=== PATIENT | male | born 1970 | race African-American/Black ===

== ENCOUNTER 2018-12-20 09:54 | Inpatient (IN) | payer MEDICARE, OTHER ==
[2018-12-20] MEDS: SODIUM CHLORIDE 0.9% 1L BAG IV* (10:16)
[2018-12-20 10:19] LABS: ADD MAN DIFF? NO
[2018-12-20 10:20] LABS: ABNORMAL IP MESSAGE 1; BASOPHIL # 0.1 10^3/ul (0.0-0.1); BASOPHILS % 0.4 % (0.0-2.0); HEMATOCRIT 45.5 % (42.0-52.0); HEMOGLOBIN 14.2 g/dl (14.0-18.0); LYMPHOCYTES # 0.5 10^3/ul (0.8-2.9); LYMPHOCYTES % 2.9 % (15.0-51.0); MEAN CORPUSCULAR HEMOGLOBIN 32.6 pg (29.0-33.0); MEAN CORPUSCULAR HGB CONC 31.2 g/dl (32.0-37.0); MEAN CORPUSCULAR VOLUME 104.4 fl (82.0-101.0); MEAN PLATELET VOLUME 10.5 fl (7.4-10.4); MONOCYTE # 0.6 10^3/ul (0.3-0.9); MONOCYTES % 3.1 % (0.0-11.0); NEUTROPHIL # 17.7 10^3/ul (1.6-7.5); NEUTROPHILS % 93.1 % (39.0-77.0); PLATELET COUNT 187 10^3/UL (140-415); POSITIVE DIFF @See below; RED BLOOD COUNT 4.36 10^6/ul (4.70-6.10); RED CELL DISTRIBUTION WIDTH 12.9 % (11.5-14.5)
[2018-12-20 10:20] LABS: WHITE BLOOD COUNT 18.9 10^3/ul (4.8-10.8)
[2018-12-20] MEDS: ACETAMINOPHEN 650 MG SUPP PR (10:27)
[2018-12-20] MEDS: CEFEPIME 2GM/50 ML (PMX) 50 ML IVPB (10:28)
[2018-12-20] MEDS: LEVALBUTEROL (NEB) 1.25 MG/0.5 ML AMP HHN (10:30)
[2018-12-20 10:39] LABS: INR 1.31; PROTIME 16.4 Sec (11.9-14.9); PT RATIO 1.3
[2018-12-20 10:40] LABS: PARTIAL THROMBOPLASTIN TIME 37.1 Sec (23.0-35.0)
[2018-12-20] MEDS ORDERED: LORAZEPAM 2 MG INJ (10:45)
[2018-12-20 10:51] LABS: ALANINE AMINOTRANSFERASE 11 IU/L (13-69); ALBUMIN 5.1 g/dl (3.3-4.9); ALBUMIN/GLOBULIN RATIO 0.98; ALKALINE PHOSPHATASE 108 IU/L (42-121); ANION GAP 27 (5-13); ASPARTATE AMINO TRANSFERASE 27 IU/L (15-46); BILIRUBIN,INDIRECT 0.1 mg/dl (0-1.1); BILIRUBIN,TOTAL 0.1 mg/dl (0.2-1.3); BLOOD UREA NITROGEN 94 mg/dl (7-20); CALCIUM 12.3 mg/dl (8.4-10.2); CARBON DIOXIDE 28 mmol/L (21-31); CHLORIDE 98 mmol/L (97-110); CREATININE 8.72 mg/dl (0.61-1.24); Estimated GFR 8 mL/min (>60); GLUCOSE 253 mg/dl (70-220); POTASSIUM 4.9 mmol/L (3.5-5.1); SODIUM 153 mmol/L (135-144); TOTAL PROTEIN 10.3 g/dl (6.1-8.1)
[2018-12-20 10:56] LABS: AADO2 Arterial 101.4 mmHg (7.0-24.0); Allen Test ACCEPTAB; Arterial Base Excess -0.7 mmol/L (-3.0-3); Arterial Blood Gas Oxygen Sat 98.1 mmHG (95.0-98.0); Arterial COHb 0.1 % (0.0-3.0); Arterial Fraction of Oxyhgb 97.5 % (93.0-99.0); Arterial HCO3 24.8 mmol/L (22.0-26.0); Arterial MetHb 0.5 % (0.0-1.5); Arterial pCO2 43.9 mmhg (35-45); MODE VENT - AC; Site Left Radial
[2018-12-20] MEDS: VANCOMYCIN 1 GM (PMX) 250 ML IVPB (10:57)
[2018-12-20 11:00] LABS: TROPONIN-I < 0.012 ng/ml (0.000-0.120)
[2018-12-20 11:02] LABS: ADD UMIC YES; UR ASCORBIC ACID NEGATIVE (NEGATIVE); UR BACTERIA MODERATE /HPF (NONE SEEN); UR BILIRUBIN (Dip) NEGATIVE (NEGATIVE); UR BLOOD (Dip) 2+ mg/dL (NEGATIVE); UR CLARITY TURBID (CLEAR); UR COLOR YELLOW (YELLOW); UR GLUCOSE (Dip) NEGATIVE (NEGATIVE); UR KETONES (Dip) NEGATIVE (NEGATIVE); UR LEUKOCYTE ESTERASE (Dip) 3+ Leu/ul (NEGATIVE); UR MUCUS FEW /HPF (NONE SEEN); UR NITRITE (Dip) NEGATIVE (NEGATIVE); UR NONSQUAMOUS EPITHELIAL CELL 4 /HPF (NONE SEEN); UR RBC 179 /HPF (0-5); UR SPECIFIC GRAVITY (Dip) 1.025 (1.003-1.030); UR TOTAL PROTEIN (Dip) 3+ mg/dl (NEGATIVE); UR UROBILINOGEN (Dip) NEGATIVE (NEGATIVE); UR WBC > 182 /HPF (0-5)
[2018-12-20] MEDS: LEVETIRACETAM 1000 MG (PMX) 100 ML IVPB (11:15)
[2018-12-20] MEDS: DIAZEPAM 5 MG/ML SYG IV ×2 (11:15→11:48)
[2018-12-20] MEDS ORDERED: ONDANSETRON 4 MG INJ IV ×2 (11:30→12:00)
[2018-12-20] MEDS ORDERED: ACETAMINOPHEN 325 MG TAB PO ×2 (11:30→12:00)
[2018-12-20] MEDS: LORAZEPAM 2 MG INJ IV ×4 (11:49→22:58)
[2018-12-20] MEDS ORDERED: VANCOMYCIN IV PER PHARMACY XX (12:00)
[2018-12-20] MEDS ORDERED: NACL 0.9% 3 ML SYG IV (12:00)
[2018-12-20] MEDS ORDERED: morphine 2 MG INJ IV (12:00)
[2018-12-20] MEDS: FAMOTIDINE 20 MG INJ IV (12:58)
[2018-12-20] MEDS ORDERED: CEFEPIME 2GM/50 ML (PMX) 50 ML IVPB (14:00)
[2018-12-20] MEDS: ACETAMINOPHEN 325 MG TAB PO ×2 (14:43→20:29)
[2018-12-20 15:22] LABS: LACTIC ACID 1.6 mmol/L (0.5-2.0)
[2018-12-20] MEDS ORDERED: PENDING SANTYL ORDER FOR WOUND CARE XX (16:30)
[2018-12-20] MEDS: SOD CHLORIDE 0.9% 1,000 ML IV ×2 (17:53→20:45)
[2018-12-20] MEDS: HEPARIN 5,000 UNIT/1 ML VIAL SC (20:49)
[2018-12-20] MEDS ORDERED: FAMOTIDINE 20 MG INJ IV (21:00)
[2018-12-20] MEDS ORDERED: LEVETIRACETAM IV 750 MG in DEXTROSE 5% 100 ML IVPB ×2 (22:00→23:20)
[2018-12-20] MEDS: LEVETIRACETAM IV 750 MG in DEXTROSE 5% 100 ML IVPB (22:48)
[2018-12-20] MEDS: ACETAMINOPHEN 1000MG/100ML IV 100 ML IVPB (22:50)
[2018-12-21] MEDS: SOD CHLORIDE 0.9% 500 ML IV (00:39)
[2018-12-21] MEDS ORDERED: SODIUM CHLORIDE 0.9% 1L BAG IV (03:00)
[2018-12-21] MEDS ORDERED: HEPARIN 1000 UNITS/ML 10 ML INJ CATHETER (03:00)
[2018-12-21] MEDS: ACETAMINOPHEN 1000MG/100ML IV 100 ML IVPB ×3 (04:57→16:00)
[2018-12-21] MEDS: SOD CHLORIDE 0.9% 1,000 ML IV (05:15)
[2018-12-21] MEDS ORDERED: DOPamine-D5W 1.6 MG/ML 250 ML IV (05:30)
[2018-12-21 06:54] LABS: ADD MAN DIFF? NO
[2018-12-21 06:57] LABS: BASOPHIL # 0.1 10^3/ul (0.0-0.1); BASOPHILS % 0.5 % (0.0-2.0); HEMATOCRIT 43.6 % (42.0-52.0); HEMOGLOBIN 13.1 g/dl (14.0-18.0); LYMPHOCYTES # 1.4 10^3/ul (0.8-2.9); LYMPHOCYTES % 10.5 % (15.0-51.0); MEAN CORPUSCULAR HEMOGLOBIN 32.3 pg (29.0-33.0); MEAN CORPUSCULAR VOLUME 107.7 fl (82.0-101.0); MEAN PLATELET VOLUME 10.7 fl (7.4-10.4); MONOCYTES % 7.9 % (0.0-11.0); NEUTROPHIL # 10.4 10^3/ul (1.6-7.5); NEUTROPHILS % 80.6 % (39.0-77.0); PLATELET COUNT 161 10^3/UL (140-415); RED BLOOD COUNT 4.05 10^6/ul (4.70-6.10); RED CELL DISTRIBUTION WIDTH 12.8 % (11.5-14.5)
[2018-12-21 06:57] LABS: WHITE BLOOD COUNT 12.9 10^3/ul (4.8-10.8)
[2018-12-21 07:32] LABS: HEMOGLOBIN A1C 4.7 % (0-5.9)
[2018-12-21] MEDS: LORAZEPAM 2 MG INJ IV ×2 (07:37→11:36)
[2018-12-21 07:40] LABS: ALANINE AMINOTRANSFERASE 18 IU/L (13-69); ALBUMIN 4.6 g/dl (3.3-4.9); ALBUMIN/GLOBULIN RATIO 1.04; ALKALINE PHOSPHATASE 97 IU/L (42-121); ANION GAP 26 (5-13); ASPARTATE AMINO TRANSFERASE 23 IU/L (15-46); BLOOD UREA NITROGEN 112 mg/dl (7-20); CALCIUM 11.1 mg/dl (8.4-10.2); CARBON DIOXIDE 22 mmol/L (21-31); CHLORIDE 104 mmol/L (97-110); CREATININE 10.06 mg/dl (0.61-1.24); Estimated GFR 7 mL/min (>60); GLUCOSE 126 mg/dl (70-220); POTASSIUM 4.7 mmol/L (3.5-5.1); SODIUM 152 mmol/L (135-144)
[2018-12-21] MEDS ORDERED: PROPOFOL 100 ML (08:28)
[2018-12-21] MEDS ORDERED: CEFEPIME 2GM/50 ML IVPB (09:00)
[2018-12-21] MEDS ORDERED: LEVETIRACETAM IV 750 MG in DEXTROSE 5% 100 ML IVPB (09:00)
[2018-12-21] MEDS: HEPARIN 5,000 UNIT/1 ML VIAL SC ×2 (09:07→20:29)
[2018-12-21] MEDS: PROPOFOL 100 ML IV ×2 (09:09→21:47)
[2018-12-21 09:19] LABS: HEPATITIS B SURFACE ANTIGEN NEGATIVE (NEGATIVE)
[2018-12-21] MEDS: LIDOCAINE 1% (MPF) 5 ML VIAL SC (09:30)
[2018-12-21 09:39] LABS: HEPATITIS B SURFACE ANTIBODY POSITIVE (NEGATIVE)
[2018-12-21] MEDS: LEVETIRACETAM IV 750 MG in DEXTROSE 5% 100 ML IVPB ×2 (10:01→20:25)
[2018-12-21] MEDS: MIDAZOLAM (DRIP) 50 mg/50 mL 50 ML IV ×3 (10:44→23:12)
[2018-12-21] MEDS: FAMOTIDINE 20 MG INJ IV (13:10)
[2018-12-21] MEDS: SOD CHLORIDE 0.45% 1,000 ML IV ×2 (14:53→21:47)
[2018-12-21] MEDS: ALBUMIN HUMAN 25% 100 ML IV (18:51)
[2018-12-21] MEDS: DOPamine 1.6 MG/ML D5W 250 ML IV (19:10)
[2018-12-21] MEDS: CEFEPIME 2GM/50 ML IVPB (19:20)
[2018-12-22] MEDS: SOD CHLORIDE 0.45% 1,000 ML IV ×4 (04:12→22:13)
[2018-12-22] MEDS: MIDAZOLAM (DRIP) 50 mg/50 mL 50 ML IV ×4 (04:12→23:41)
[2018-12-22 04:52] LABS: ADD MAN DIFF? NO
[2018-12-22] MEDS: LORAZEPAM 2 MG INJ IV ×3 (04:53→22:52)
[2018-12-22 05:00] LABS: WHITE BLOOD COUNT 14.1 10^3/ul (4.8-10.8)
[2018-12-22 05:00] LABS: BASOPHILS % 0.3 % (0.0-2.0); HEMATOCRIT 34.5 % (42.0-52.0); HEMOGLOBIN 10.9 g/dl (14.0-18.0); LYMPHOCYTES # 1.5 10^3/ul (0.8-2.9); LYMPHOCYTES % 10.7 % (15.0-51.0); MEAN CORPUSCULAR HEMOGLOBIN 32.7 pg (29.0-33.0); MEAN CORPUSCULAR HGB CONC 31.6 g/dl (32.0-37.0); MEAN CORPUSCULAR VOLUME 103.6 fl (82.0-101.0); MEAN PLATELET VOLUME 10.6 fl (7.4-10.4); MONOCYTE # 0.7 10^3/ul (0.3-0.9); NEUTROPHIL # 11.8 10^3/ul (1.6-7.5); NEUTROPHILS % 83.5 % (39.0-77.0); PLATELET COUNT 132 10^3/UL (140-415); RED BLOOD COUNT 3.33 10^6/ul (4.70-6.10); RED CELL DISTRIBUTION WIDTH 12.5 % (11.5-14.5)
[2018-12-22 05:32] LABS: ANION GAP 23 (5-13); BLOOD UREA NITROGEN 95 mg/dl (7-20); CARBON DIOXIDE 22 mmol/L (21-31); CHLORIDE 97 mmol/L (97-110); CREATININE 7.11 mg/dl (0.61-1.24); Estimated GFR 10 mL/min (>60); GLUCOSE 139 mg/dl (70-220); PHOSPHORUS 7.9 mg/dl (2.5-4.9); POTASSIUM 4.3 mmol/L (3.5-5.1); SODIUM 142 mmol/L (135-144)
[2018-12-22] MEDS: PROPOFOL 100 ML IV ×3 (09:03→22:17)
[2018-12-22] MEDS: HEPARIN 5,000 UNIT/1 ML VIAL SC ×2 (09:04→21:58)
[2018-12-22] MEDS: LEVETIRACETAM IV 750 MG in DEXTROSE 5% 100 ML IVPB ×2 (09:46→22:13)
[2018-12-22] MEDS: PHENYTOIN 1,000 MG in SOD CHLORIDE 0.9% 100 ML IV (09:53)
[2018-12-22] MEDS: FAMOTIDINE 20 MG INJ IV (14:58)
[2018-12-22] MEDS: CEFEPIME 2GM/50 ML IVPB (15:53)
[2018-12-22] MEDS: DOPamine 1.6 MG/ML D5W 250 ML IV (16:14)
[2018-12-23] MEDS: CEFTRIAXONE 1 GM/50 ML (PMX) 50 ML IVPB ×2 (00:34→23:25)
[2018-12-23] MEDS: LORAZEPAM 2 MG INJ IV ×4 (01:45→12:30)
[2018-12-23] MEDS: MIDAZOLAM (DRIP) 50 mg/50 mL 50 ML IV ×2 (05:09→13:33)
[2018-12-23 05:18] LABS: ADD MAN DIFF? NO
[2018-12-23 05:20] LABS: WHITE BLOOD COUNT 8.3 10^3/ul (4.8-10.8)
[2018-12-23 05:20] LABS: BASOPHILS % 0.4 % (0.0-2.0); EOSINOPHILS # 0.1 10^3/ul (0.0-0.5); EOSINOPHILS % 0.7 % (0.0-7.0); HEMATOCRIT 35.4 % (42.0-52.0); HEMOGLOBIN 11.6 g/dl (14.0-18.0); LYMPHOCYTES # 1.1 10^3/ul (0.8-2.9); LYMPHOCYTES % 12.7 % (15.0-51.0); MEAN CORPUSCULAR HEMOGLOBIN 33.3 pg (29.0-33.0); MEAN CORPUSCULAR HGB CONC 32.8 g/dl (32.0-37.0); MEAN CORPUSCULAR VOLUME 101.7 fl (82.0-101.0); MEAN PLATELET VOLUME 10.9 fl (7.4-10.4); MONOCYTE # 0.6 10^3/ul (0.3-0.9); MONOCYTES % 6.6 % (0.0-11.0); NEUTROPHIL # 6.6 10^3/ul (1.6-7.5); NEUTROPHILS % 79.2 % (39.0-77.0); PLATELET COUNT 126 10^3/UL (140-415); RED BLOOD COUNT 3.48 10^6/ul (4.70-6.10); RED CELL DISTRIBUTION WIDTH 12.4 % (11.5-14.5)
[2018-12-23 05:48] LABS: ANION GAP 20 (5-13); BLOOD UREA NITROGEN 65 mg/dl (7-20); CALCIUM 10.1 mg/dl (8.4-10.2); CARBON DIOXIDE 23 mmol/L (21-31); CHLORIDE 97 mmol/L (97-110); CREATININE 5.14 mg/dl (0.61-1.24); Estimated GFR 14 mL/min (>60); GLUCOSE 95 mg/dl (70-220); SODIUM 140 mmol/L (135-144)
[2018-12-23] MEDS: SOD CHLORIDE 0.45% 1,000 ML IV ×3 (06:04→20:42)
[2018-12-23] MEDS: PROPOFOL 100 ML IV ×2 (10:01→18:02)
[2018-12-23] MEDS: HEPARIN 5,000 UNIT/1 ML VIAL SC ×2 (10:06→20:43)
[2018-12-23] MEDS: LEVETIRACETAM IV 750 MG in DEXTROSE 5% 100 ML IVPB ×2 (11:52→20:42)
[2018-12-23] MEDS: FAMOTIDINE 20 MG INJ IV (11:52)
[2018-12-23 15:39] LABS: CREATINE KINASE 39 IU/L (23-200)
[2018-12-23 15:52] LABS: CK INDEX 7.2; TROPONIN-I < 0.012 ng/ml (0.000-0.120)
[2018-12-23 15:53] LABS: CK-MB 2.82 ng/ml (0.0-2.4)
[2018-12-23] MEDS: DOPamine 1.6 MG/ML D5W 250 ML IV (18:06)
[2018-12-23] MEDS: PHENOBARBITAL 65 MG INJ IV ×3 (18:47→23:25)
[2018-12-24] MEDS: PHENOBARBITAL 65 MG INJ IV ×2 (00:59→21:21)
[2018-12-24 01:53] LABS: CREATINE KINASE 37 IU/L (23-200)
[2018-12-24] MEDS: MIDAZOLAM (DRIP) 50 mg/50 mL 50 ML IV ×3 (02:04→18:20)
[2018-12-24] MEDS: PROPOFOL 100 ML IV ×3 (02:04→21:22)
[2018-12-24 02:06] LABS: CK INDEX 8.9; TROPONIN-I < 0.012 ng/ml (0.000-0.120)
[2018-12-24 02:09] LABS: CK-MB 3.31 ng/ml (0.0-2.4)
[2018-12-24] MEDS: SOD CHLORIDE 0.45% 1,000 ML IV ×4 (02:30→22:43)
[2018-12-24 05:34] LABS: ADD MAN DIFF? NO
[2018-12-24 05:43] LABS: BASOPHILS % 0.3 % (0.0-2.0); EOSINOPHILS # 0.2 10^3/ul (0.0-0.5); EOSINOPHILS % 2.9 % (0.0-7.0); HEMATOCRIT 35.9 % (42.0-52.0); HEMOGLOBIN 11.8 g/dl (14.0-18.0); LYMPHOCYTES # 0.7 10^3/ul (0.8-2.9); LYMPHOCYTES % 10.3 % (15.0-51.0); MEAN CORPUSCULAR HEMOGLOBIN 32.6 pg (29.0-33.0); MEAN CORPUSCULAR HGB CONC 32.9 g/dl (32.0-37.0); MEAN CORPUSCULAR VOLUME 99.2 fl (82.0-101.0); MEAN PLATELET VOLUME 10.6 fl (7.4-10.4); MONOCYTE # 0.4 10^3/ul (0.3-0.9); MONOCYTES % 5.5 % (0.0-11.0); NEUTROPHIL # 5.3 10^3/ul (1.6-7.5); NEUTROPHILS % 80.5 % (39.0-77.0); PLATELET COUNT 113 10^3/UL (140-415); RED BLOOD COUNT 3.62 10^6/ul (4.70-6.10)
[2018-12-24 05:43] LABS: WHITE BLOOD COUNT 6.6 10^3/ul (4.8-10.8)
[2018-12-24 06:06] LABS: CHOLESTEROL 100 mg/dl (100-200)
[2018-12-24 06:06] LABS: CHOL/HDL RATIO 4.5 RATIO; HDL CHOLESTEROL 22 mg/dl (28-71); LDL CHOLESTEROL,CALCULATED 33 mg/dl; TRIGLYCERIDES 225 mg/dl (0-149)
[2018-12-24 06:07] LABS: ANION GAP 19 (5-13); BLOOD UREA NITROGEN 73 mg/dl (7-20); CALCIUM 9.7 mg/dl (8.4-10.2); CARBON DIOXIDE 20 mmol/L (21-31); CHLORIDE 95 mmol/L (97-110); CREATINE KINASE 62 IU/L (23-200); Estimated GFR 13 mL/min (>60); GLUCOSE 94 mg/dl (70-220); POTASSIUM 4.1 mmol/L (3.5-5.1); SODIUM 134 mmol/L (135-144)
[2018-12-24 06:14] LABS: CK INDEX 6.4; CK-MB 3.94 ng/ml (0.0-2.4); TROPONIN-I < 0.012 ng/ml (0.000-0.120)
[2018-12-24 07:05] LABS: AADO2 Arterial 83.3 mmHg (7.0-24.0); Allen Test ACCEPTAB; Arterial Base Excess -6.5 mmol/L (-3.0-3); Arterial Blood Gas Oxygen Sat 94.7 mmHG (95.0-98.0); Arterial COHb 0.4 % (0.0-3.0); Arterial HCO3 19.1 mmol/L (22.0-26.0); Arterial MetHb 0.3 % (0.0-1.5); Arterial pCO2 38.4 mmhg (35-45); MODE VENT - AC; Site Left Radial
[2018-12-24] MEDS: HEPARIN 5,000 UNIT/1 ML VIAL SC ×2 (08:41→21:23)
[2018-12-24] MEDS: LIDOCAINE 1% (MPF) 5 ML VIAL SC (10:45)
[2018-12-24] MEDS: LEVETIRACETAM IV 750 MG in DEXTROSE 5% 100 ML IVPB ×2 (12:34→21:22)
[2018-12-24] MEDS: FAMOTIDINE 20 MG INJ IV (12:34)
[2018-12-24] MEDS: CEFTRIAXONE 1 GM/50 ML (PMX) 50 ML IVPB (23:37)
[2018-12-25] MEDS: MIDAZOLAM (DRIP) 50 mg/50 mL 50 ML IV ×3 (01:20→18:06)
[2018-12-25] MEDS: SOD CHLORIDE 0.45% 1,000 ML IV (05:27)
[2018-12-25 05:32] LABS: ADD MAN DIFF? NO
[2018-12-25 05:40] LABS: ABNORMAL IP MESSAGE 1; BASOPHILS % 0.5 % (0.0-2.0); EOSINOPHILS # 0.3 10^3/ul (0.0-0.5); EOSINOPHILS % 4.2 % (0.0-7.0); HEMATOCRIT 31.9 % (42.0-52.0); HEMOGLOBIN 10.4 g/dl (14.0-18.0); LYMPHOCYTES # 0.6 10^3/ul (0.8-2.9); LYMPHOCYTES % 9.3 % (15.0-51.0); MEAN CORPUSCULAR HEMOGLOBIN 32.8 pg (29.0-33.0); MEAN CORPUSCULAR HGB CONC 32.6 g/dl (32.0-37.0); MEAN CORPUSCULAR VOLUME 100.6 fl (82.0-101.0); MEAN PLATELET VOLUME 10.4 fl (7.4-10.4); MONOCYTE # 0.5 10^3/ul (0.3-0.9); MONOCYTES % 7.8 % (0.0-11.0); NEUTROPHIL # 4.7 10^3/ul (1.6-7.5); NEUTROPHILS % 77.7 % (39.0-77.0); PLATELET COUNT 95 10^3/UL (140-415); POSITIVE DIFF @See below; RED BLOOD COUNT 3.17 10^6/ul (4.70-6.10)
[2018-12-25] MEDS: PROPOFOL 100 ML IV ×3 (05:44→20:47)
[2018-12-25 06:02] LABS: ANION GAP 17 (5-13); BLOOD UREA NITROGEN 46 mg/dl (7-20); CALCIUM 9.4 mg/dl (8.4-10.2); CARBON DIOXIDE 20 mmol/L (21-31); CHLORIDE 99 mmol/L (97-110); CREATININE 4.14 mg/dl (0.61-1.24); Estimated GFR 19 mL/min (>60); GLUCOSE 86 mg/dl (70-220); POTASSIUM 3.6 mmol/L (3.5-5.1); SODIUM 136 mmol/L (135-144)
[2018-12-25 08:47] LABS: PHENOBARBITAL 10.2 mg/L (15.0-40.0)
[2018-12-25] MEDS: PHENOBARBITAL 65 MG INJ IV ×5 (09:28→21:39)
[2018-12-25] MEDS: HEPARIN 5,000 UNIT/1 ML VIAL SC (09:32)
[2018-12-25] MEDS: LEVETIRACETAM IV 750 MG in DEXTROSE 5% 100 ML IVPB ×2 (11:02→21:15)
[2018-12-25] MEDS: FAMOTIDINE 20 MG INJ IV (13:03)
[2018-12-26] MEDS: CEFTRIAXONE 1 GM/50 ML (PMX) 50 ML IVPB (00:17)
[2018-12-26] MEDS: PHENOBARBITAL 65 MG INJ IV ×3 (00:17→20:55)
[2018-12-26] MEDS: MIDAZOLAM (DRIP) 50 mg/50 mL 50 ML IV ×3 (02:30→19:46)
[2018-12-26] MEDS: PROPOFOL 100 ML IV ×4 (02:47→22:30)
[2018-12-26 04:55] LABS: ADD MAN DIFF? NO
[2018-12-26 05:05] LABS: ABNORMAL IP MESSAGE 1; BASOPHILS % 0.3 % (0.0-2.0); EOSINOPHILS # 0.5 10^3/ul (0.0-0.5); EOSINOPHILS % 8.6 % (0.0-7.0); HEMATOCRIT 31.3 % (42.0-52.0); HEMOGLOBIN 10.4 g/dl (14.0-18.0); LYMPHOCYTES # 0.7 10^3/ul (0.8-2.9); LYMPHOCYTES % 11.4 % (15.0-51.0); MEAN CORPUSCULAR HEMOGLOBIN 32.8 pg (29.0-33.0); MEAN CORPUSCULAR HGB CONC 33.2 g/dl (32.0-37.0); MEAN CORPUSCULAR VOLUME 98.7 fl (82.0-101.0); MEAN PLATELET VOLUME 10.4 fl (7.4-10.4); MONOCYTE # 0.5 10^3/ul (0.3-0.9); MONOCYTES % 8.3 % (0.0-11.0); NEUTROPHIL # 4.3 10^3/ul (1.6-7.5); NEUTROPHILS % 70.9 % (39.0-77.0); PLATELET COUNT 97 10^3/UL (140-415); POSITIVE DIFF @See below; RED BLOOD COUNT 3.17 10^6/ul (4.70-6.10); RED CELL DISTRIBUTION WIDTH 12.2 % (11.5-14.5)
[2018-12-26 05:05] LABS: WHITE BLOOD COUNT 6.1 10^3/ul (4.8-10.8)
[2018-12-26 05:19] LABS: ANION GAP 16 (5-13); BLOOD UREA NITROGEN 56 mg/dl (7-20); CALCIUM 9.7 mg/dl (8.4-10.2); CARBON DIOXIDE 21 mmol/L (21-31); CHLORIDE 97 mmol/L (97-110); Estimated GFR 15 mL/min (>60); GLUCOSE 99 mg/dl (70-220); SODIUM 134 mmol/L (135-144)
[2018-12-26] MEDS: LORAZEPAM 2 MG INJ IV (10:23)
[2018-12-26] MEDS: FAMOTIDINE 20 MG TAB GTB (13:30)
[2018-12-26] MEDS ORDERED: VANCOMYCIN IV PER PHARMACY XX (14:30)
[2018-12-26] MEDS: CEFEPIME 1GM/50 ML (PMX) 50 ML IVPB (14:30)
[2018-12-26] MEDS: LEVETIRACETAM IV 750 MG in DEXTROSE 5% 100 ML IVPB (16:26)
[2018-12-26] MEDS: VANCOMYCIN HCL 1.5 GM in SOD CHLORIDE 0.9% 250 ML IVPB (16:44)
[2018-12-26] MEDS: EPOETIN 10000 UNITS/1 ML INJ (ESRD) SC (17:31)
[2018-12-26] MEDS: LEVETIRACETAM IV 750 MG in SOD CHLORIDE 0.9% 100 ML IV (20:55)
[2018-12-27 01:38] LABS: PHENOBARBITAL 19.9 mg/L (15.0-40.0)
[2018-12-27] MEDS: PROPOFOL 100 ML IV ×5 (02:34→22:24)
[2018-12-27] MEDS: MIDAZOLAM (DRIP) 50 mg/50 mL 50 ML IV ×3 (04:49→23:13)
[2018-12-27] MEDS: LORAZEPAM 2 MG INJ IV (05:06)
[2018-12-27 05:14] LABS: ADD MAN DIFF? NO
[2018-12-27 05:16] LABS: BASOPHILS % 0.4 % (0.0-2.0); EOSINOPHILS # 0.6 10^3/ul (0.0-0.5); EOSINOPHILS % 7.9 % (0.0-7.0); HEMATOCRIT 32.5 % (42.0-52.0); HEMOGLOBIN 10.5 g/dl (14.0-18.0); LYMPHOCYTES # 0.7 10^3/ul (0.8-2.9); LYMPHOCYTES % 9.8 % (15.0-51.0); MEAN CORPUSCULAR HEMOGLOBIN 32.9 pg (29.0-33.0); MEAN CORPUSCULAR HGB CONC 32.3 g/dl (32.0-37.0); MEAN CORPUSCULAR VOLUME 101.9 fl (82.0-101.0); MEAN PLATELET VOLUME 10.5 fl (7.4-10.4); MONOCYTE # 0.6 10^3/ul (0.3-0.9); MONOCYTES % 8.9 % (0.0-11.0); NEUTROPHILS % 72.3 % (39.0-77.0); PLATELET COUNT 122 10^3/UL (140-415); RED BLOOD COUNT 3.19 10^6/ul (4.70-6.10); RED CELL DISTRIBUTION WIDTH 12.2 % (11.5-14.5)
[2018-12-27 06:01] LABS: ANION GAP 12 (5-13); BLOOD UREA NITROGEN 39 mg/dl (7-20); CALCIUM 9.7 mg/dl (8.4-10.2); CARBON DIOXIDE 26 mmol/L (21-31); CHLORIDE 99 mmol/L (97-110); CREATININE 3.68 mg/dl (0.61-1.24); Estimated GFR 21 mL/min (>60); GLUCOSE 71 mg/dl (70-220); POTASSIUM 3.7 mmol/L (3.5-5.1); SODIUM 137 mmol/L (135-144)
[2018-12-27] MEDS: PHENOBARBITAL 65 MG INJ IV ×2 (11:21→23:05)
[2018-12-27] MEDS: FAMOTIDINE 20 MG TAB GTB (11:21)
[2018-12-27] MEDS: LEVETIRACETAM IV 750 MG in SOD CHLORIDE 0.9% 100 ML IV ×2 (11:21→21:37)
[2018-12-27] MEDS ORDERED: PHENOBARBITAL 65 MG INJ IV (12:00)
[2018-12-27] MEDS: PHENOBARBITAL IV ×4 (13:34→21:34)
[2018-12-27] MEDS: SOD CHLORIDE 0.9% IV ×4 (13:34→21:34)
[2018-12-27] MEDS: CEFEPIME 1GM/50 ML (PMX) 50 ML IVPB (15:31)
[2018-12-28] MEDS: PROPOFOL 100 ML IV ×5 (04:17→23:15)
[2018-12-28 05:10] LABS: AADO2 Arterial 24.9 mmHg (7.0-24.0); Allen Test ACCEPTAB; Arterial Base Excess -3.9 mmol/L (-3.0-3); Arterial Blood Gas Oxygen Sat 97.9 mmHG (95.0-98.0); Arterial COHb 0.7 % (0.0-3.0); Arterial Fraction of Oxyhgb 96.8 % (93.0-99.0); Arterial HCO3 23.8 mmol/L (22.0-26.0); Arterial MetHb 0.4 % (0.0-1.5); Arterial pCO2 53.7 mmhg (35-45); MODE VENT - AC; Site Left Radial
[2018-12-28 05:24] LABS: ADD MAN DIFF? NO
[2018-12-28 05:26] LABS: BASOPHILS % 0.7 % (0.0-2.0); EOSINOPHILS # 0.5 10^3/ul (0.0-0.5); EOSINOPHILS % 9.7 % (0.0-7.0); HEMATOCRIT 34.9 % (42.0-52.0); HEMOGLOBIN 11.1 g/dl (14.0-18.0); LYMPHOCYTES # 0.7 10^3/ul (0.8-2.9); LYMPHOCYTES % 13.2 % (15.0-51.0); MEAN CORPUSCULAR HEMOGLOBIN 32.4 pg (29.0-33.0); MEAN CORPUSCULAR HGB CONC 31.8 g/dl (32.0-37.0); MEAN CORPUSCULAR VOLUME 101.7 fl (82.0-101.0); MEAN PLATELET VOLUME 10.2 fl (7.4-10.4); MONOCYTE # 0.6 10^3/ul (0.3-0.9); MONOCYTES % 10.8 % (0.0-11.0); NEUTROPHIL # 3.4 10^3/ul (1.6-7.5); NEUTROPHILS % 64.3 % (39.0-77.0); PLATELET COUNT 123 10^3/UL (140-415); RED BLOOD COUNT 3.43 10^6/ul (4.70-6.10); RED CELL DISTRIBUTION WIDTH 12.5 % (11.5-14.5)
[2018-12-28 05:26] LABS: WHITE BLOOD COUNT 5.4 10^3/ul (4.8-10.8)
[2018-12-28 06:29] LABS: ANION GAP 16 (5-13); BLOOD UREA NITROGEN 51 mg/dl (7-20); CALCIUM 9.9 mg/dl (8.4-10.2); CARBON DIOXIDE 23 mmol/L (21-31); CHLORIDE 96 mmol/L (97-110); CREATININE 4.31 mg/dl (0.61-1.24); Estimated GFR 18 mL/min (>60); GLUCOSE 117 mg/dl (70-220); POTASSIUM 4.1 mmol/L (3.5-5.1); SODIUM 135 mmol/L (135-144)
[2018-12-28] MEDS: MIDAZOLAM (DRIP) 50 mg/50 mL 50 ML IV ×2 (07:00→18:36)
[2018-12-28 07:56] LABS: PHENOBARBITAL 12.6 mg/L (15.0-40.0)
[2018-12-28] MEDS: LEVETIRACETAM IV 750 MG in SOD CHLORIDE 0.9% 100 ML IV ×2 (09:18→21:15)
[2018-12-28] MEDS: PHENOBARBITAL 65 MG INJ IV ×2 (09:18→21:20)
[2018-12-28] MEDS: FAMOTIDINE 20 MG TAB GTB (09:18)
[2018-12-28 13:36] LABS: CREATINE KINASE 42 IU/L (23-200)
[2018-12-28] MEDS: CEFEPIME 1GM/50 ML (PMX) 50 ML IVPB (14:38)
[2018-12-28] MEDS: LIDOCAINE 1% (MPF) 5 ML VIAL SC (15:00)
[2018-12-29] MEDS: PROPOFOL 100 ML IV ×4 (04:45→18:39)
[2018-12-29 05:02] LABS: AADO2 Arterial 72.7 mmHg (7.0-24.0); Allen Test ACCEPTAB; Arterial Base Excess -2.7 mmol/L (-3.0-3); Arterial Blood Gas Oxygen Sat 97.6 mmHG (95.0-98.0); Arterial COHb 0.3 % (0.0-3.0); Arterial Fraction of Oxyhgb 97.1 % (93.0-99.0); Arterial HCO3 21.2 mmol/L (22.0-26.0); Arterial MetHb 0.2 % (0.0-1.5); Arterial pCO2 33.9 mmhg (35-45); MODE VENT - AC; Site Left Radial
[2018-12-29 05:18] LABS: ADD MAN DIFF? NO
[2018-12-29 05:26] LABS: WHITE BLOOD COUNT 8.1 10^3/ul (4.8-10.8)
[2018-12-29 05:26] LABS: BASOPHILS % 0.5 % (0.0-2.0); EOSINOPHILS # 0.6 10^3/ul (0.0-0.5); EOSINOPHILS % 7.4 % (0.0-7.0); HEMATOCRIT 29.8 % (42.0-52.0); HEMOGLOBIN 9.7 g/dl (14.0-18.0); LYMPHOCYTES # 0.8 10^3/ul (0.8-2.9); LYMPHOCYTES % 10.2 % (15.0-51.0); MEAN CORPUSCULAR HEMOGLOBIN 32.4 pg (29.0-33.0); MEAN CORPUSCULAR HGB CONC 32.6 g/dl (32.0-37.0); MEAN CORPUSCULAR VOLUME 99.7 fl (82.0-101.0); MEAN PLATELET VOLUME 10.8 fl (7.4-10.4); MONOCYTE # 0.7 10^3/ul (0.3-0.9); MONOCYTES % 8.8 % (0.0-11.0); NEUTROPHIL # 5.8 10^3/ul (1.6-7.5); NEUTROPHILS % 72.2 % (39.0-77.0); RED BLOOD COUNT 2.99 10^6/ul (4.70-6.10); RED CELL DISTRIBUTION WIDTH 12.5 % (11.5-14.5)
[2018-12-29 05:37] LABS: PLATELET COUNT 150 10^3/UL (140-415)
[2018-12-29 05:40] LABS: LACTIC ACID 1.5 mmol/L (0.5-2.0)
[2018-12-29 05:45] LABS: VANCOMYCIN,RANDOM 13.1 ug/ml
[2018-12-29] MEDS: MIDAZOLAM (DRIP) 50 mg/50 mL 50 ML IV ×2 (05:52→16:27)
[2018-12-29 06:01] LABS: ANION GAP 19 (5-13); BLOOD UREA NITROGEN 65 mg/dl (7-20); CALCIUM 9.5 mg/dl (8.4-10.2); CARBON DIOXIDE 22 mmol/L (21-31); CHLORIDE 94 mmol/L (97-110); CREATININE 4.73 mg/dl (0.61-1.24); Estimated GFR 16 mL/min (>60); GLUCOSE 96 mg/dl (70-220); SODIUM 135 mmol/L (135-144)
[2018-12-29] MEDS: FAMOTIDINE 20 MG TAB GTB (13:41)
[2018-12-29] MEDS: PHENOBARBITAL 65 MG INJ IV ×2 (13:41→21:10)
[2018-12-29] MEDS: LEVETIRACETAM IV 750 MG in SOD CHLORIDE 0.9% 100 ML IV ×2 (13:43→20:58)
[2018-12-29] MEDS ORDERED: PHENOBARBITAL 65 MG INJ IV ×2 (15:00→17:00)
[2018-12-29] MEDS: CEFEPIME 1GM/50 ML (PMX) 50 ML IVPB (15:42)
[2018-12-29] MEDS: SOD CHLORIDE 0.9% IV (17:04)
[2018-12-29] MEDS: PHENOBARBITAL IV (17:04)
[2018-12-29] MEDS: VANCOMYCIN 1 GM 250 ML IVPB (17:13)
[2018-12-29] MEDS ORDERED: hydrALAzine 20 MG INJ (18:18)
[2018-12-29] MEDS: hydrALAzine 20 MG INJ IV (18:40)
[2018-12-29] MEDS: EPOETIN 10000 UNITS/1 ML INJ (ESRD) SC (18:46)
[2018-12-30] MEDS: MIDAZOLAM (DRIP) 50 mg/50 mL 50 ML IV ×2 (02:47→09:33)
[2018-12-30 04:53] LABS: ADD MAN DIFF? NO
[2018-12-30 04:55] LABS: WHITE BLOOD COUNT 7.2 10^3/ul (4.8-10.8)
[2018-12-30 04:55] LABS: BASOPHIL # 0.1 10^3/ul (0.0-0.1); BASOPHILS % 0.8 % (0.0-2.0); EOSINOPHILS # 0.4 10^3/ul (0.0-0.5); EOSINOPHILS % 5.9 % (0.0-7.0); HEMATOCRIT 30.7 % (42.0-52.0); HEMOGLOBIN 9.9 g/dl (14.0-18.0); LYMPHOCYTES # 0.9 10^3/ul (0.8-2.9); LYMPHOCYTES % 11.9 % (15.0-51.0); MEAN CORPUSCULAR HEMOGLOBIN 32.1 pg (29.0-33.0); MEAN CORPUSCULAR HGB CONC 32.2 g/dl (32.0-37.0); MEAN CORPUSCULAR VOLUME 99.7 fl (82.0-101.0); MEAN PLATELET VOLUME 10.3 fl (7.4-10.4); MONOCYTE # 0.6 10^3/ul (0.3-0.9); MONOCYTES % 8.5 % (0.0-11.0); NEUTROPHIL # 5.1 10^3/ul (1.6-7.5); NEUTROPHILS % 71.8 % (39.0-77.0); PLATELET COUNT 179 10^3/UL (140-415); RED BLOOD COUNT 3.08 10^6/ul (4.70-6.10); RED CELL DISTRIBUTION WIDTH 12.7 % (11.5-14.5)
[2018-12-30] MEDS: PHENOBARBITAL 65 MG INJ IV (05:00)
[2018-12-30 05:23] LABS: ANION GAP 13 (5-13); BLOOD UREA NITROGEN 46 mg/dl (7-20); CALCIUM 9.6 mg/dl (8.4-10.2); CARBON DIOXIDE 25 mmol/L (21-31); CHLORIDE 97 mmol/L (97-110); CREATININE 3.63 mg/dl (0.61-1.24); Estimated GFR 22 mL/min (>60); GLUCOSE 86 mg/dl (70-220); MAGNESIUM 2.6 mg/dl (1.7-2.5); POTASSIUM 3.7 mmol/L (3.5-5.1); SODIUM 135 mmol/L (135-144)
[2018-12-30] MEDS: PROPOFOL 100 ML IV ×5 (05:59→21:05)
[2018-12-30 07:37] LABS: PHENOBARBITAL 15.7 mg/L (15.0-40.0)
[2018-12-30] MEDS: FAMOTIDINE 20 MG TAB GTB (08:00)
[2018-12-30] MEDS: hydrALAzine 20 MG INJ IV (08:44)
[2018-12-30] MEDS: PHENOBARBITAL (4 MG/ML) 5ML CUP PEG ×3 (08:54→20:45)
[2018-12-30] MEDS: LEVETIRACETAM IV 750 MG in SOD CHLORIDE 0.9% 100 ML IV ×2 (10:13→20:43)
[2018-12-30] MEDS: LORAZEPAM 2 MG INJ IV ×3 (11:12→23:52)
[2018-12-30] MEDS: CEFEPIME 1GM/50 ML (PMX) 50 ML IVPB (14:50)
[2018-12-31] MEDS: PROPOFOL 100 ML IV ×4 (03:01→22:45)
[2018-12-31 05:14] LABS: ADD MAN DIFF? NO
[2018-12-31 05:19] LABS: BASOPHIL # 0.1 10^3/ul (0.0-0.1); EOSINOPHILS # 0.4 10^3/ul (0.0-0.5); EOSINOPHILS % 6.6 % (0.0-7.0); HEMATOCRIT 33.3 % (42.0-52.0); HEMOGLOBIN 10.8 g/dl (14.0-18.0); LYMPHOCYTES # 0.8 10^3/ul (0.8-2.9); LYMPHOCYTES % 13.8 % (15.0-51.0); MEAN CORPUSCULAR HEMOGLOBIN 32.1 pg (29.0-33.0); MEAN CORPUSCULAR HGB CONC 32.4 g/dl (32.0-37.0); MEAN CORPUSCULAR VOLUME 99.1 fl (82.0-101.0); MEAN PLATELET VOLUME 10.1 fl (7.4-10.4); MONOCYTE # 0.6 10^3/ul (0.3-0.9); MONOCYTES % 10.2 % (0.0-11.0); NEUTROPHIL # 4.1 10^3/ul (1.6-7.5); NEUTROPHILS % 67.1 % (39.0-77.0); PLATELET COUNT 186 10^3/UL (140-415); RED BLOOD COUNT 3.36 10^6/ul (4.70-6.10); RED CELL DISTRIBUTION WIDTH 12.8 % (11.5-14.5)
[2018-12-31 05:19] LABS: WHITE BLOOD COUNT 6.1 10^3/ul (4.8-10.8)
[2018-12-31 05:21] LABS: PHENOBARBITAL 42.9 mg/L (15.0-40.0)
[2018-12-31] MEDS: LORAZEPAM 2 MG INJ IV ×6 (05:33→23:17)
[2018-12-31] MEDS: PHENOBARBITAL (4 MG/ML) 5ML CUP PEG ×3 (05:33→20:33)
[2018-12-31 05:44] LABS: ANION GAP 19 (5-13); BLOOD UREA NITROGEN 59 mg/dl (7-20); CALCIUM 9.9 mg/dl (8.4-10.2); CARBON DIOXIDE 22 mmol/L (21-31); CHLORIDE 95 mmol/L (97-110); CREATININE 4.35 mg/dl (0.61-1.24); Estimated GFR 18 mL/min (>60); GLUCOSE 110 mg/dl (70-220); POTASSIUM 3.8 mmol/L (3.5-5.1); SODIUM 136 mmol/L (135-144)
[2018-12-31] MEDS: LEVETIRACETAM IV 750 MG in SOD CHLORIDE 0.9% 100 ML IV ×2 (08:45→20:29)
[2018-12-31] MEDS: FAMOTIDINE 20 MG TAB GTB (08:45)
[2018-12-31] MEDS: METOCLOPRAMIDE 10 MG INJ IV ×3 (10:49→20:33)
[2018-12-31] MEDS: CEFEPIME 1GM/50 ML (PMX) 50 ML IVPB (16:47)
[2018-12-31] MEDS: EPOETIN 10000 UNITS/1 ML INJ (ESRD) SC (17:15)
[2019-01-01 03:46] LABS: PHENOBARBITAL 37.5 mg/L (15.0-40.0)
[2019-01-01] MEDS: METOCLOPRAMIDE 10 MG INJ IV ×4 (04:57→21:19)
[2019-01-01] MEDS: PROPOFOL 100 ML IV ×3 (04:57→21:19)
[2019-01-01] MEDS: LORAZEPAM 2 MG INJ IV ×4 (05:01→22:01)
[2019-01-01 05:15] LABS: ADD MAN DIFF? NO
[2019-01-01 05:20] LABS: BASOPHILS % 0.5 % (0.0-2.0); EOSINOPHILS # 0.3 10^3/ul (0.0-0.5); EOSINOPHILS % 3.1 % (0.0-7.0); HEMATOCRIT 32.4 % (42.0-52.0); HEMOGLOBIN 10.4 g/dl (14.0-18.0); LYMPHOCYTES # 0.8 10^3/ul (0.8-2.9); LYMPHOCYTES % 9.3 % (15.0-51.0); MEAN CORPUSCULAR HEMOGLOBIN 32.4 pg (29.0-33.0); MEAN CORPUSCULAR HGB CONC 32.1 g/dl (32.0-37.0); MEAN CORPUSCULAR VOLUME 100.9 fl (82.0-101.0); MEAN PLATELET VOLUME 10.3 fl (7.4-10.4); MONOCYTE # 0.7 10^3/ul (0.3-0.9); MONOCYTES % 9.1 % (0.0-11.0); NEUTROPHIL # 6.3 10^3/ul (1.6-7.5); NEUTROPHILS % 77.4 % (39.0-77.0); PLATELET COUNT 195 10^3/UL (140-415); RED BLOOD COUNT 3.21 10^6/ul (4.70-6.10); RED CELL DISTRIBUTION WIDTH 12.8 % (11.5-14.5)
[2019-01-01 05:20] LABS: WHITE BLOOD COUNT 8.1 10^3/ul (4.8-10.8)
[2019-01-01 05:37] LABS: ANION GAP 14 (5-13); BLOOD UREA NITROGEN 39 mg/dl (7-20); CALCIUM 9.9 mg/dl (8.4-10.2); CARBON DIOXIDE 25 mmol/L (21-31); CHLORIDE 99 mmol/L (97-110); Estimated GFR 25 mL/min (>60); GLUCOSE 93 mg/dl (70-220); POTASSIUM 3.4 mmol/L (3.5-5.1); SODIUM 138 mmol/L (135-144)
[2019-01-01] MEDS: PHENOBARBITAL (4 MG/ML) 5ML CUP PEG ×3 (05:53→21:20)
[2019-01-01] MEDS: POTASSIUM CHLORIDE 50 ML IVPB ×2 (06:56→09:15)
[2019-01-01] MEDS: LEVETIRACETAM IV 750 MG in SOD CHLORIDE 0.9% 100 ML IV ×2 (09:15→21:20)
[2019-01-01] MEDS: FAMOTIDINE 20 MG TAB GTB (09:15)
[2019-01-01] MEDS: CEFEPIME 1GM/50 ML (PMX) 50 ML IVPB (14:14)
[2019-01-02 01:38] LABS: PHENOBARBITAL 22.6 mg/L (15.0-40.0)
[2019-01-02] MEDS: LORAZEPAM 2 MG INJ IV ×9 (04:53→21:53)
[2019-01-02] MEDS: METOCLOPRAMIDE 10 MG INJ IV ×4 (04:53→21:42)
[2019-01-02] MEDS: PROPOFOL 100 ML IV ×4 (04:54→21:54)
[2019-01-02] MEDS: PHENOBARBITAL (4 MG/ML) 5ML CUP PEG ×3 (05:02→21:42)
[2019-01-02 06:29] LABS: VANCOMYCIN,RANDOM 11.6 ug/ml
[2019-01-02] MEDS: FAMOTIDINE 20 MG TAB GTB (08:32)
[2019-01-02 08:55] LABS: ADD MAN DIFF? NO
[2019-01-02] MEDS: LEVETIRACETAM IV 750 MG in SOD CHLORIDE 0.9% 100 ML IV ×2 (09:07→21:41)
[2019-01-02 09:08] LABS: WHITE BLOOD COUNT 6.8 10^3/ul (4.8-10.8)
[2019-01-02 09:08] LABS: BASOPHILS % 0.6 % (0.0-2.0); EOSINOPHILS # 0.4 10^3/ul (0.0-0.5); EOSINOPHILS % 5.6 % (0.0-7.0); HEMATOCRIT 32.5 % (42.0-52.0); HEMOGLOBIN 10.5 g/dl (14.0-18.0); LYMPHOCYTES # 0.9 10^3/ul (0.8-2.9); LYMPHOCYTES % 12.8 % (15.0-51.0); MEAN CORPUSCULAR HEMOGLOBIN 32.7 pg (29.0-33.0); MEAN CORPUSCULAR HGB CONC 32.3 g/dl (32.0-37.0); MEAN CORPUSCULAR VOLUME 101.2 fl (82.0-101.0); MEAN PLATELET VOLUME 9.9 fl (7.4-10.4); MONOCYTE # 0.7 10^3/ul (0.3-0.9); MONOCYTES % 9.7 % (0.0-11.0); NEUTROPHIL # 4.8 10^3/ul (1.6-7.5); NEUTROPHILS % 70.6 % (39.0-77.0); PLATELET COUNT 184 10^3/UL (140-415); RED BLOOD COUNT 3.21 10^6/ul (4.70-6.10); RED CELL DISTRIBUTION WIDTH 12.7 % (11.5-14.5)
[2019-01-02 09:32] LABS: ANION GAP 16 (5-13); BLOOD UREA NITROGEN 49 mg/dl (7-20); CALCIUM 10.5 mg/dl (8.4-10.2); CARBON DIOXIDE 23 mmol/L (21-31); CHLORIDE 101 mmol/L (97-110); CREATININE 4.31 mg/dl (0.61-1.24); Estimated GFR 18 mL/min (>60); GLUCOSE 69 mg/dl (70-220); POTASSIUM 4.1 mmol/L (3.5-5.1); SODIUM 140 mmol/L (135-144)
[2019-01-02] MEDS ORDERED: VANCOMYCIN 1 GM 250 ML IVPB (10:00)
[2019-01-02] MEDS ORDERED: DEXTROSE 50% 50 ML SYRINGE (10:09)
[2019-01-02] MEDS: DEXTROSE 50% 50 ML SYRINGE IV (10:15)
[2019-01-02] MEDS ORDERED: GLUCOSE GEL 15 GRAM TUBE PO ×2 (11:00)
[2019-01-02] MEDS ORDERED: DEXTROSE 50% 50 ML SYRINGE IV (11:00)
[2019-01-02] MEDS ORDERED: GLUCOSE GEL 15 GRAM TUBE BUCCAL (11:00)
[2019-01-02] MEDS ORDERED: GLUCAGON 1 MG INJ IM (11:00)
[2019-01-02] MEDS: ACCU-CHEK XX ×2 (11:45→17:21)
[2019-01-02] MEDS: hydrALAzine 20 MG INJ IV (13:19)
[2019-01-02 14:32] LABS: AADO2 Arterial 56.8 mmHg (7.0-24.0); Allen Test ACCEPTAB; Arterial Base Excess 3.5 mmol/L (-3.0-3); Arterial COHb 0.1 % (0.0-3.0); Arterial Fraction of Oxyhgb 97.5 % (93.0-99.0); Arterial MetHb 0.4 % (0.0-1.5); Arterial pCO2 37.1 mmhg (35-45); MODE VENT - AC; Site Left Radial
[2019-01-02] MEDS: CLONIDINE 0.2 MG/24 HR PATCH TRANSDERM (15:01)
[2019-01-02] MEDS: EPOETIN 10000 UNITS/1 ML INJ (ESRD) SC (16:01)
[2019-01-02] MEDS: SCOPOLAMINE 1.5 MG PATCH TRANSDERM (16:02)
[2019-01-03] MEDS: LORAZEPAM 2 MG INJ IV ×13 (00:39→23:32)
[2019-01-03 01:33] LABS: PHENOBARBITAL 12.2 mg/L (15.0-40.0)
[2019-01-03] MEDS: METOCLOPRAMIDE 10 MG INJ IV ×4 (05:11→21:17)
[2019-01-03] MEDS: PHENOBARBITAL (4 MG/ML) 5ML CUP PEG ×3 (05:29→21:18)
[2019-01-03] MEDS: ACCU-CHEK XX ×2 (05:30)
[2019-01-03 06:08] LABS: ADD MAN DIFF? NO
[2019-01-03 06:14] LABS: BASOPHIL # 0.1 10^3/ul (0.0-0.1); BASOPHILS % 0.6 % (0.0-2.0); EOSINOPHILS # 0.3 10^3/ul (0.0-0.5); EOSINOPHILS % 4.3 % (0.0-7.0); HEMATOCRIT 32.1 % (42.0-52.0); HEMOGLOBIN 10.3 g/dl (14.0-18.0); LYMPHOCYTES # 0.7 10^3/ul (0.8-2.9); LYMPHOCYTES % 8.8 % (15.0-51.0); MEAN CORPUSCULAR HEMOGLOBIN 33.1 pg (29.0-33.0); MEAN CORPUSCULAR HGB CONC 32.1 g/dl (32.0-37.0); MEAN CORPUSCULAR VOLUME 103.2 fl (82.0-101.0); MEAN PLATELET VOLUME 10.5 fl (7.4-10.4); MONOCYTE # 0.7 10^3/ul (0.3-0.9); MONOCYTES % 8.9 % (0.0-11.0); NEUTROPHIL # 6.1 10^3/ul (1.6-7.5); NEUTROPHILS % 76.5 % (39.0-77.0); PLATELET COUNT 210 10^3/UL (140-415); RED BLOOD COUNT 3.11 10^6/ul (4.70-6.10); RED CELL DISTRIBUTION WIDTH 13.1 % (11.5-14.5)
[2019-01-03 06:34] LABS: ANION GAP 16 (5-13); BLOOD UREA NITROGEN 35 mg/dl (7-20); CALCIUM 9.9 mg/dl (8.4-10.2); CARBON DIOXIDE 27 mmol/L (21-31); CHLORIDE 96 mmol/L (97-110); CREATININE 3.24 mg/dl (0.61-1.24); Estimated GFR 25 mL/min (>60); GLUCOSE 115 mg/dl (70-220); MAGNESIUM 2.6 mg/dl (1.7-2.5); PHOSPHORUS 4.8 mg/dl (2.5-4.9); SODIUM 139 mmol/L (135-144)
[2019-01-03] MEDS: PROPOFOL 100 ML IV ×3 (08:30→23:32)
[2019-01-03] MEDS: FAMOTIDINE 20 MG TAB GTB (08:50)
[2019-01-03] MEDS: LEVETIRACETAM IV 750 MG in SOD CHLORIDE 0.9% 100 ML IV ×2 (10:01→21:18)
[2019-01-04] MEDS: LORAZEPAM 2 MG INJ IV ×12 (01:43→23:21)
[2019-01-04] MEDS: METOCLOPRAMIDE 10 MG INJ IV ×4 (03:30→21:37)
[2019-01-04 04:55] LABS: ADD MAN DIFF? NO
[2019-01-04 04:56] LABS: BASOPHIL # 0.1 10^3/ul (0.0-0.1); BASOPHILS % 0.7 % (0.0-2.0); EOSINOPHILS # 0.5 10^3/ul (0.0-0.5); EOSINOPHILS % 5.9 % (0.0-7.0); HEMATOCRIT 32.2 % (42.0-52.0); HEMOGLOBIN 10.1 g/dl (14.0-18.0); LYMPHOCYTES % 11.3 % (15.0-51.0); MEAN CORPUSCULAR HEMOGLOBIN 32.4 pg (29.0-33.0); MEAN CORPUSCULAR HGB CONC 31.4 g/dl (32.0-37.0); MEAN CORPUSCULAR VOLUME 103.2 fl (82.0-101.0); MONOCYTE # 0.7 10^3/ul (0.3-0.9); MONOCYTES % 8.3 % (0.0-11.0); NEUTROPHIL # 6.3 10^3/ul (1.6-7.5); NEUTROPHILS % 73.2 % (39.0-77.0); PLATELET COUNT 206 10^3/UL (140-415); RED BLOOD COUNT 3.12 10^6/ul (4.70-6.10)
[2019-01-04 04:56] LABS: WHITE BLOOD COUNT 8.5 10^3/ul (4.8-10.8)
[2019-01-04 05:18] LABS: LACTIC ACID 1.2 mmol/L (0.5-2.0)
[2019-01-04 05:20] LABS: ANION GAP 14 (5-13); BLOOD UREA NITROGEN 50 mg/dl (7-20); CALCIUM 10.4 mg/dl (8.4-10.2); CARBON DIOXIDE 27 mmol/L (21-31); CHLORIDE 98 mmol/L (97-110); CREATININE 4.15 mg/dl (0.61-1.24); Estimated GFR 19 mL/min (>60); GLUCOSE 97 mg/dl (70-220); POTASSIUM 4.7 mmol/L (3.5-5.1); SODIUM 139 mmol/L (135-144)
[2019-01-04] MEDS: PHENOBARBITAL (4 MG/ML) 5ML CUP PEG ×3 (05:25→21:36)
[2019-01-04 05:26] LABS: AADO2 Arterial 96.6 mmHg (7.0-24.0); Arterial Base Excess 0.1 mmol/L (-3.0-3); Arterial Blood Gas Oxygen Sat 91.5 mmHG (95.0-98.0); Arterial COHb 0.5 % (0.0-3.0); Arterial Fraction of Oxyhgb 90.7 % (93.0-99.0); Arterial HCO3 25.1 mmol/L (22.0-26.0); Arterial MetHb 0.4 % (0.0-1.5); Arterial pCO2 42.2 mmhg (35-45); MODE VENT - AC; Site LB
[2019-01-04] MEDS: PROPOFOL 100 ML IV ×3 (06:08→22:40)
[2019-01-04 07:00] LABS: PHENOBARBITAL 14.4 mg/L (15.0-40.0)
[2019-01-04] MEDS: FAMOTIDINE 20 MG TAB GTB (08:13)
[2019-01-04] MEDS: LEVETIRACETAM IV 750 MG in SOD CHLORIDE 0.9% 100 ML IV ×2 (08:20→21:36)
[2019-01-05] MEDS: LORAZEPAM 2 MG INJ IV ×12 (01:39→22:59)
[2019-01-05] MEDS: METOCLOPRAMIDE 10 MG INJ IV ×4 (03:38→21:30)
[2019-01-05] MEDS: PHENOBARBITAL (4 MG/ML) 5ML CUP PEG ×3 (05:56→21:31)
[2019-01-05] MEDS: FAMOTIDINE 20 MG TAB GTB (09:15)
[2019-01-05] MEDS: LEVETIRACETAM IV 750 MG in SOD CHLORIDE 0.9% 100 ML IV ×2 (09:15→21:26)
[2019-01-05] MEDS: PROPOFOL 100 ML IV ×3 (11:33→22:59)
[2019-01-05] MEDS ORDERED: PHENOBARBITAL 65 MG INJ IV (14:30)
[2019-01-05] MEDS: SCOPOLAMINE 1.5 MG PATCH TRANSDERM (15:25)
[2019-01-05] MEDS: SOD CHLORIDE 0.9% IV (16:23)
[2019-01-05] MEDS: PHENOBARBITAL IV (16:23)
[2019-01-05] MEDS: EPOETIN 10000 UNITS/1 ML INJ (ESRD) SC (17:33)
[2019-01-06] MEDS: LORAZEPAM 2 MG INJ IV ×12 (01:00→22:58)
[2019-01-06 02:22] LABS: PHENOBARBITAL 16.2 mg/L (15.0-40.0)
[2019-01-06] MEDS: METOCLOPRAMIDE 10 MG INJ IV ×4 (05:01→21:39)
[2019-01-06 05:27] LABS: ADD MAN DIFF? NO; PHENOBARBITAL 14.5 mg/L (15.0-40.0)
[2019-01-06 05:28] LABS: BASOPHIL # 0.1 10^3/ul (0.0-0.1); BASOPHILS % 0.9 % (0.0-2.0); EOSINOPHILS # 0.6 10^3/ul (0.0-0.5); EOSINOPHILS % 7.6 % (0.0-7.0); HEMATOCRIT 30.1 % (42.0-52.0); HEMOGLOBIN 9.6 g/dl (14.0-18.0); LYMPHOCYTES % 12.8 % (15.0-51.0); MEAN CORPUSCULAR HEMOGLOBIN 33.4 pg (29.0-33.0); MEAN CORPUSCULAR HGB CONC 31.9 g/dl (32.0-37.0); MEAN CORPUSCULAR VOLUME 104.9 fl (82.0-101.0); MEAN PLATELET VOLUME 9.9 fl (7.4-10.4); MONOCYTE # 0.6 10^3/ul (0.3-0.9); MONOCYTES % 7.5 % (0.0-11.0); NEUTROPHIL # 5.6 10^3/ul (1.6-7.5); NEUTROPHILS % 70.6 % (39.0-77.0); PLATELET COUNT 158 10^3/UL (140-415); RED BLOOD COUNT 2.87 10^6/ul (4.70-6.10); RED CELL DISTRIBUTION WIDTH 13.1 % (11.5-14.5)
[2019-01-06] MEDS: PROPOFOL 100 ML IV ×3 (05:31→20:13)
[2019-01-06 05:56] LABS: ANION GAP 16 (5-13); BLOOD UREA NITROGEN 54 mg/dl (7-20); CALCIUM 9.9 mg/dl (8.4-10.2); CARBON DIOXIDE 27 mmol/L (21-31); CHLORIDE 96 mmol/L (97-110); CREATININE 3.93 mg/dl (0.61-1.24); Estimated GFR 20 mL/min (>60); GLUCOSE 89 mg/dl (70-220); POTASSIUM 4.5 mmol/L (3.5-5.1); SODIUM 139 mmol/L (135-144)
[2019-01-06] MEDS: PHENOBARBITAL (4 MG/ML) 5ML CUP PEG ×3 (06:22→21:39)
[2019-01-06 07:46] LABS: PHENOBARBITAL 13.9 mg/L (15.0-40.0)
[2019-01-06] MEDS: FAMOTIDINE 20 MG TAB GTB (12:22)
[2019-01-06] MEDS: LEVETIRACETAM IV 750 MG in SOD CHLORIDE 0.9% 100 ML IV ×2 (12:22→20:56)
[2019-01-06] MEDS ORDERED: DIVALPROEX (EC) 250 MG TAB PO (13:00)
[2019-01-06] MEDS: DIVALPROEX (EC) 250 MG TAB PO ×2 (13:00→20:56)
[2019-01-07] MEDS: LORAZEPAM 2 MG INJ IV ×12 (00:51→22:50)
[2019-01-07] MEDS: PROPOFOL 100 ML IV ×5 (00:51→22:42)
[2019-01-07 03:58] LABS: PHENOBARBITAL 21.8 mg/L (15.0-40.0)
[2019-01-07] MEDS: METOCLOPRAMIDE 10 MG INJ IV ×4 (04:04→22:08)
[2019-01-07] MEDS: PHENOBARBITAL (4 MG/ML) 5ML CUP PEG ×3 (05:26→22:09)
[2019-01-07] MEDS: FAMOTIDINE 20 MG TAB GTB (09:19)
[2019-01-07] MEDS: LEVETIRACETAM IV 750 MG in SOD CHLORIDE 0.9% 100 ML IV ×2 (09:19→21:04)
[2019-01-07] MEDS: EPOETIN 10000 UNITS/1 ML INJ (ESRD) SC (17:42)
[2019-01-07] MEDS: HEPARIN 5,000 UNIT/1 ML VIAL SC (21:05)
[2019-01-08] MEDS: LORAZEPAM 2 MG INJ IV ×6 (01:20→11:00)
[2019-01-08 02:22] LABS: PHENOBARBITAL 15.5 mg/L (15.0-40.0)
[2019-01-08] MEDS: PROPOFOL 100 ML IV ×2 (03:02→08:58)
[2019-01-08] MEDS: METOCLOPRAMIDE 10 MG INJ IV (05:26)
[2019-01-08] MEDS: PHENOBARBITAL (4 MG/ML) 5ML CUP PEG (05:27)
[2019-01-08 05:39] LABS: ADD MAN DIFF? NO
[2019-01-08 05:47] LABS: WHITE BLOOD COUNT 10.5 10^3/ul (4.8-10.8)
[2019-01-08 05:47] LABS: BASOPHIL # 0.1 10^3/ul (0.0-0.1); BASOPHILS % 0.6 % (0.0-2.0); EOSINOPHILS # 0.7 10^3/ul (0.0-0.5); EOSINOPHILS % 6.2 % (0.0-7.0); HEMATOCRIT 28.3 % (42.0-52.0); HEMOGLOBIN 8.9 g/dl (14.0-18.0); LYMPHOCYTES # 0.9 10^3/ul (0.8-2.9); LYMPHOCYTES % 8.5 % (15.0-51.0); MEAN CORPUSCULAR HEMOGLOBIN 32.4 pg (29.0-33.0); MEAN CORPUSCULAR HGB CONC 31.4 g/dl (32.0-37.0); MEAN CORPUSCULAR VOLUME 102.9 fl (82.0-101.0); MEAN PLATELET VOLUME 10.6 fl (7.4-10.4); MONOCYTE # 0.7 10^3/ul (0.3-0.9); MONOCYTES % 6.5 % (0.0-11.0); NEUTROPHIL # 8.2 10^3/ul (1.6-7.5); NEUTROPHILS % 77.6 % (39.0-77.0); PLATELET COUNT 144 10^3/UL (140-415); RED BLOOD COUNT 2.75 10^6/ul (4.70-6.10); RED CELL DISTRIBUTION WIDTH 13.7 % (11.5-14.5)
[2019-01-08 06:07] LABS: ANION GAP 19 (5-13); BLOOD UREA NITROGEN 60 mg/dl (7-20); CALCIUM 9.8 mg/dl (8.4-10.2); CARBON DIOXIDE 24 mmol/L (21-31); CHLORIDE 94 mmol/L (97-110); CREATININE 3.86 mg/dl (0.61-1.24); Estimated GFR 20 mL/min (>60); GLUCOSE 69 mg/dl (70-220); POTASSIUM 4.6 mmol/L (3.5-5.1); SODIUM 137 mmol/L (135-144)
[2019-01-08] MEDS: DEXTROSE 50% 50 ML SYRINGE IV (06:33)
[2019-01-08] MEDS: LEVETIRACETAM IV 750 MG in SOD CHLORIDE 0.9% 100 ML IV ×2 (09:53→20:57)
[2019-01-08] MEDS: LORAZEPAM (MDV) 100 MG in DEXTROSE 5% 50 ML IV (10:48)
[2019-01-08] MEDS: morphine (DRIP) 100 MG/100 ML 100 ML IV ×2 (10:49→21:11)
[2019-01-09] MEDS: morphine (DRIP) 100 MG/100 ML 100 ML IV ×3 (04:12→10:39)
[2019-01-09] MEDS: LORAZEPAM (MDV) 100 MG in DEXTROSE 5% 50 ML IV (05:21)
[2019-01-09] MEDS: LEVETIRACETAM IV 750 MG in SOD CHLORIDE 0.9% 100 ML IV (09:55)
== END 2019-01-09 15:15 | disposition expired | DRG 870 ==
LOC: ICU 12-21 07:50 → E/R 09:54 → 6WM 11:06
PROC: 5A1955Z Respiratory Ventilation, Greater than 96 Consecutive Hours (ICD-10-PCS; 2018-12-20)
PROC: 06HY33Z Insertion of Infusion Device into Lower Vein, Percutaneous Approach (ICD-10-PCS; principal; 2018-12-21)
PROC: 5A1D70Z Performance of Urinary Filtration, Intermittent, Less than 6 Hours Per Day (ICD-10-PCS; 2018-12-21)
PROC: 02HV33Z Insertion of Infusion Device into Superior Vena Cava, Percutaneous Approach (ICD-10-PCS; 2018-12-24)
PROC: 02HV33Z Insertion of Infusion Device into Superior Vena Cava, Percutaneous Approach (ICD-10-PCS; 2018-12-28)
DX: A41.9 Sepsis, unspecified organism (principal); N18.6 End stage renal disease; N39.0 Urinary tract infection, site not specified; I12.0 Hypertensive chronic kidney disease with stage 5 chronic kidney disease or end stage renal disease; J96.10 Chronic respiratory failure, unspecified whether with hypoxia or hypercapnia; E87.0 Hyperosmolality and hypernatremia; G93.1 Anoxic brain damage, not elsewhere classified; R57.9 Shock, unspecified; L89.90 Pressure ulcer of unspecified site, unspecified stage; G40.901 Epilepsy, unspecified, not intractable, with status epilepticus; Z66 Do not resuscitate; Z51.5 Encounter for palliative care; E11.22 Type 2 diabetes mellitus with diabetic chronic kidney disease; D63.1 Anemia in chronic kidney disease; H70.93 Unspecified mastoiditis, bilateral; Z99.2 Dependence on renal dialysis; Z93.1 Gastrostomy status; Z93.0 Tracheostomy status
CPT/HCPCS: 36415; 36569; 36600; 70450; 70551; 71045; 76937; 80048; 80053; 80061; 80184; 80202; 81001; 82550; 82553; 82803; 82962; 83036; 83605; 83735; 84100; 84443; 84484; 85025; 85610; 85730; 86706; 87040; 87081; 87086; 87340; 87400; 90935; 93005; 93306; 94002; 94003; 95819; 96374; 96375; 99291-25